=== PATIENT | male | born 1960 | race Caucasian/White ===

== ENCOUNTER → 2016-06-30 | Outpatient (CLI) | payer MEDICARE | LOC: COL.LAB 10:36 | DX: M25.861 Other specified joint disorders, right knee (principal) ==

== ENCOUNTER → 2016-07-05 | Outpatient (CLI) | payer MEDICARE | LOC: ZCOL.LAB 13:13 | DX: Z53.9 Procedure and treatment not carried out, unspecified reason (principal) ==

== ENCOUNTER → 2016-07-05 | Outpatient (REF) ==
[2016-07-05 08:49] LABS: BASO # 0.1 (0.0-0.2); BASO % 1.3 % (0.0-2.0); EOS # 0.3 (0.0-0.7); EOS % 6.8 % (0-4.0); GRAN % 50.1 % (42.2-75.2); HEMATOCRIT 39.9 % (42.0-52.0); HEMOGLOBIN 13.8 g/dl (13.5-18.0); LYMPH # 1.2 (1.2-3.4); LYMPH % 29.1 % (20.0-51.0); MEAN CELL VOLUME 98 fl (80.0-100.0); MEAN CORPUSCULAR HEMOGLOBIN 34 pg (27.0-31.0); MEAN CORPUSCULAR HGB CONC 35 g/dl (33.0-37.0); MEAN PLATELET VOLUME 11.9 fl (7.4-10.4); MONO # 0.5 (0.1-0.6); MONO % 12.2 % (1.7-9.3); PLATELET COUNT 86 K/mm3 (130-400); RED BLOOD COUNT 4.08 M/mm3 (4.20-5.60); REDCELL DISTRIBUTION WIDTH-CV 12.8 % (11.5-14.5)
[2016-07-05 21:30] LABS: HIV ANTIGEN-ANTIBODY COMBO-AMS Negative (())
== END ==
LOC: ZMSC 08:45
PROVIDERS: Orthopaedic Surgery Sports Medicine
DX: Z02.89 Encounter for other administrative examinations (principal)

== ENCOUNTER → 2016-07-06 | Outpatient (REF) | LOC: ZMSC 14:19 | PROVIDERS: Orthopaedic Surgery Sports Medicine | DX: Z01.89 Encounter for other specified special examinations (principal) | CPT/HCPCS: 87522 ==